=== PATIENT | male | born 1940 | race Caucasian/White ===

== ENCOUNTER → 2016-11-13 | Outpatient (CLI) | payer OTHER ==
[~2016-11-13] MED LIST: ASPI81TA28 PO; MULT-506 PO
== END | disposition home or self-care (01) ==
LOC: C.PATHSPEC 17:05
PROVIDERS: ATTEND Plastic Surgery
DX: C44.91 Basal cell carcinoma of skin, unspecified (principal)

== ENCOUNTER 2016-11-25 05:12 | Day surgery (SDC) | payer OTHER ==
[2016-11-20 14:52] VITALS: BMI 27.0
--- NOTE | 2016-11-20 15:24 | PAT Medication Instructions ---
Service Date Nov 20, 2016. Current Home Medication List Aspirin (Aspirin Ec), 81 MG PO QAM Multivitamin (Multivitamin), 1 TAB PO QAM Medication Instructions For Your Scheduled Surgery - Check with surgeon for instructions: Aspirin (Aspirin Ec), 81 MG PO QAM - Hold the following medications the morning of surgery: Multivitamin (Multivitamin), 1 TAB PO QAM Nothing to eat or drink after midnight day of surgery. If you have any questions please call us at [phone] or [phone] or [phone]
[2016-11-20 15:54] LABS: BASO % 0.1 %; BASO ABS # 0.01 K/uL (0-0.2); COMPLETE YES; EOS % 0.8 %; HEMATOCRIT 43.4 % (42-52); IG% 0.1 %; LYMPH % 39.6 %; LYMPH ABS # 3.01 K/uL (1.2-3.4); MEAN CELL VOLUME 86.8 fL (80-100); MEAN CORPUSCULAR HEMOGLOBIN 29.8 pg (25-34); MEAN CORPUSCULAR HGB CONC 34.3 g/dl (32-36); MEAN PLATELET VOLUME 11.2 fL (7.4-10.4); MONO % 9.6 %; NEUT % 49.8 %; PLATELET COUNT 196 K/uL (130-400)
[2016-11-20 16:00] LABS: BUN/CREATININE RATIO 19.8 (10-20); CALCIUM 8.9 mg/dl (8.5-10.1); POTASSIUM 4.1 mmol/L (3.5-5.1)
[~2016-11-25] VITALS: Ht 168.9 cm; Wt 79.5 kg
[2016-11-25 05:36] VITALS: BP 140/91; PULSE 82; TEMP 36.5; O2SAT 96; Ht 168.9 cm; Wt 79.5 kg
[2016-11-25] MEDS ORDERED: CEFAZOLIN 2000 MG/60 ML D5W IV SCH (06:00)
[2016-11-25] MEDS ORDERED: LACTATED RINGER'S 1000ML 1,000 ML IV SCH (06:00)
[2016-11-25] MEDS ORDERED: PROPOFOL IV EMULSION 10 MG/ML 20 ML VIAL IV ONE ×2 (06:25→07:37)
[2016-11-25] MEDS ORDERED: LIDOCAINE HCL 2% 2 ML VIAL (20MG/ML) ONE (06:25)
[2016-11-25] MEDS ORDERED: ONDANSETRON INJ 2 MG/ML 2 ML VIAL ONE ×2 (06:25→07:37)
[2016-11-25] MEDS ORDERED: FENTANYL CITRATE INJ 50 MCG/1 ML 2 ML VIAL ONE (06:25)
[2016-11-25] MEDS ORDERED: ROCURONIUM BROMIDE 10 MG/ML 5 ML VIAL ONE (06:25)
--- NOTE | 2016-11-25 06:53 | History & Physical Bridge Note ---
H&P Re-Evaluation Bridge Note: I have examined the patient, reviewed the History & Physical and in the interval since the performance of the History & Physical I have noted the following changes of clinical significance: No changes noted
[2016-11-25] MEDS ORDERED: LIDOCAINE/EPINEPHRINE 1% 20 ML VIAL ONE ×2 (07:02→08:14)
[2016-11-25] MEDS ORDERED: BACITRACIN OINT 15 GM TUBE ONE (07:02)
[2016-11-25] MEDS ORDERED: EpINEphrine HCL INJ 1 MG/ML 5ML SYRINGE ONE (07:02)
[2016-11-25] MEDS ORDERED: HYDROmorphone INJ 1 MG/ML SYR IV PRN (07:15)
[2016-11-25] MEDS ORDERED: EpHEDrine SULFATE INJ 50 MG/ML AMP IV PRN (07:15)
[2016-11-25] MEDS ORDERED: ONDANSETRON INJ 2 MG/ML 2 ML VIAL IV PRN (07:15)
[2016-11-25] MEDS ORDERED: ATROPINE SULFATE 0.1 MG/ML 5ML SYR IV PRN (07:15)
[2016-11-25] MEDS ORDERED: FENTANYL CITRATE INJ 50 MCG/1 ML 2 ML VIAL IV PRN (07:15)
[2016-11-25] MEDS ORDERED: MIDAZOLAM HCL 1 MG/ML 2ML VIAL ONE ×2 (07:21→07:53)
[2016-11-25] MEDS ORDERED: POVIDONE-IODINE OP SOLN 30 ML BTL ONE (07:21)
[2016-11-25] MEDS ORDERED: SODIUM CHLORIDE 0.9% 1000ML 1,000 ML IV SCH (09:44)
--- NOTE | 2016-11-25 09:44 | [facility] Post Operative Brief Note ---
Immediate Operative Summary Operative Date Nov 25, 2016. Pre-Operative Diagnosis Basal cell carcinoma nose, non healing lesion left hand Post-Operative Diagnosis Basal cell carcinoma nose, non healing lesion left hand Procedure(s) Performed nose-Excision of basal cell carcinoma with frozen section and full thickness skin graft, left hand- excision of basal cell carcinoma dorsum of hand with frozen section and layered closure Surgeon Dr. Mims Rubber Calender Helper Surgeon(s) none Estimated Blood Loss 0 ML Findings both lesions BCC, all margins negative Specimens Frozen Section 1. Basal cell carcinoma, nose stitch 12 o'clock specimen picked up at 0813 2. non healing skin lesion left hand specimen picked up at 0818 At 0850 lab called with results and spoke with Dr. Mims directly Anesthesia lcoal with sedation Complication(s) None Disposition Recovery Room / PACU
[2016-11-25] MEDS ORDERED: HYDROCODONE/ACETAMOPHEN 5/325MG TAB PO PRN ×2 (09:45)
[2016-11-25] MEDS ORDERED: ACETAMINOPHEN 325 MG TAB PO PRN (09:45)
[2016-11-25 09:50] VITALS: BP 114/57; PULSE 70; TEMP 36.4; O2SAT 97
--- NOTE | 2016-11-25 09:51 | Discharge Instructions ---
Discharge Instructions Date of Service Nov 25, 2016. Admission Reason for Admission: Basal Cell Carcinoma; Non-healing lesion left hand Discharge Discharge Diagnosis / Problem: Basal Cell Carcinoma Discharge Goals Goal(s): Decrease discomfort, Improve function Activity Recommendations Activity Limitations: as noted below . Instructions / Follow-Up Instructions / Follow-Up ACTIVITY RECOMMENDATIONS: __Normal activities __xNo bending, lifting or straining __No driving __xDriving allowed when you are off pain medications __Walking permitted __You should have help at home for ___ days DRESSINGS: __No dressings required _x_Keep dressings dry/in place until first office visit __Remove dressings ___ and leave dressings off __Apply ice ___ days __Remove dressings and reapply garment __Apply antibiotic ointment (Bacitracin, Neosporin, etc) to wounds 3-4 times/ day for 10 days BATHING: _x_Keep dressings dry x__Sponge bathing permitted __Showering permitted _x_No swimming, hot tubs or soaking in a tub MEDICATIONS: Resume previous medications unless instructed otherwise by your surgeon. _x_Do not use aspirin, Motrin, Advil or Ibuprofen as these may promote bleeding. Please use Tylenol. _x_Prescription(s) provided: antibiotic, pain meds prescribed in office OTHER INSTRUCTIONS: __Record drain output 2-3 times per day SPECIAL CARE INSTRUCTIONS: * It is normal to have a mild fever after surgery. If your temperature is higher than 101.5 degrees F, please call the office at [phone]. * Constipation is a typical side effect of pain medication. An over-the- counter stool softener will help relieve this. * Leaking around surgical drains may occur and should not cause concern. Sometimes these drains become clogged. If this happens, remove the bulb and milk the clot out of the tube, then replace the bulb. * Drainage from wounds after liposuction is normal and should be expected. Garments will become soiled. You should protect furniture and bedding. This drainage should mostly subside within 2-3 days. Leave garments in place unless instructed to remove them. * If you have unusual drainage from a wound or are concerned you have an infection or have any questions or concerns, please call the office at [phone]. FOLLOW UP VISIT: If not already scheduled, please call the office, , when you return home after surgery to schedule an appointment to be seen in _2__ days. Current Hospital Diet Patient's current hospital diet: Discharge Diet Recommended Diet: Regular Diet Procedures Procedures Performed: nose-Excision of basal cell carcinoma with frozen section and full thickness skin graft, left hand- excision of basal cell carcinoma dorsum of hand with frozen section and layered closure Pending Studies Studies pending at discharge: no Medical Emergencies . Who to Call and When: Medical Emergencies: If at any time you feel your situation is an emergency, please call 911 immediately. . Non-Emergent Contact Non-Emergency issues call your: Primary Care Provider, Surgeon Past History Medical & Surgical History: (1) Basal cell carcinoma . "Provider Documentation" section prepared by Mavis Mims. . VTE Core Measure Inpt VTE Proph given/why not?: Simone DAVIS Drug Monitoring Program Search Results: patient reviewed within database, no issues identified
[2016-11-25 10:20] VITALS: BP 120/79; PULSE 74; TEMP 36.3; O2SAT 96
--- NOTE | 2016-11-25 10:57 | Anesthesiology Progress Note ---
Anesthesia Post Op Note Date & Time Nov 25, 2016 at 10:57 Vital Signs Pain Intensity: 0 Vital Signs Past 12 Hours Date Time Temp Pulse Resp B/P (MAP) Pulse Ox O2 Delivery O2 Flow Rate FiO2 11/25/16 09:50 36.4 70 18 114/57 97 Room Air 11/25/16 05:36 36.5 82 18 140/91 (107) 96 Room Air Notes Mental Status: alert / awake / arousable, participated in evaluation Pt Amnestic to Procedure: Yes Nausea / Vomiting: adequately controlled Pain: adequately controlled Airway Patency, RR, SpO2: stable & adequate BP & HR: stable & adequate Hydration State: stable & adequate Anesthetic Complications: no major complications apparent
--- NOTE | 2016-11-25 12:52 | OPERATIVE REPORT ---
DATE OF OPERATION: 11/25/2016 PREOPERATIVE DIAGNOSES: Basal cell carcinoma of nasal dorsum and a nonhealing skin lesion, left hand at first dorsal webspace. PROCEDURE: Excision of basal cell carcinoma of nasal dorsum with frozen section and full thickness skin grafting and excision of lesion, left hand at first webspace with frozen section and layered closure. SURGEON: Dr. Mavis Mims. FORMS BUILDER: None. ANESTHESIA: Local with sedation. COMPLICATIONS: None. INDICATION FOR THE PROCEDURE: The patient is a 76-year-old male who was referred to my office by his primary care physician regarding a nonhealing ulceration of his nasal dorsum. Biopsy was performed, which showed basal cell carcinoma. Given the large size and location, I felt it would be best treated with excision with frozen section. During his preoperative visit, he showed me a lesion of his left hand along the dorsal aspect of the first webspace, which he stated had been nonhealing for 2 years. I offered to perform biopsy in the office, but he declined and therefore, I planned for excision at the time of excision of basal cell. BRIEF DESCRIPTION OF THE PROCEDURE: The risks, benefits and alternatives of the procedure were explained to the patient, who agreed and signed consent. He was identified and marked in the preoperative holding area. He was brought to the operating room, where he was positioned supine and placed under sedation without incident. Surgical site markings were again reassessed. The surgical site was prepped and draped sterilely. A time-out procedure was performed. I began by examining the nasal dorsum under loupe magnification and marked the apparent skin lesion with already apparent basal cell with at least 2-mm margin in all directions. 1% lidocaine with epinephrine was used to anesthetize the area. I then marked the lesion on the hand with about a 5-mm margin. This was uncertain of the etiology. It was also injected using 1% lidocaine with epinephrine. Lastly, knowing that a skin graft would be required given the large size of the nasal lesion, I marked a skin graft donor site from the left clavicular area. 1% lidocaine with epinephrine was used to anesthetize this area as well. I began with excision of the lesion of the nasal dorsum. A 15 blade scalpel was used to make the incision down to underlying subcutaneous tissue. The lesion was removed full thickness using a 15 blade scalpel. A 5-0 silk suture was used to shanon the 12 o'clock position and the lesion was sent for frozen section. Hemostasis was achieved with electrocautery. A lidocaine with epinephrine soaked Ray-Dionna was placed over the site. Similarly, the lesion of the left hand was incised using a 15 blade scalpel down to subcutaneous tissue. The lesion was removed full thickness. A suture marked at 12 o'clock and specimen was sent for frozen as well. Hemostasis was achieved with electrocautery and a Ray-Dionna soaked with lidocaine with epinephrine was placed into the wound. While awaiting the frozen section results, a full-thickness graft was harvested from the clavicular area using 15 blade scalpel to make the elliptical incision. The skin was removed with minimal underlying subcutaneous soft tissue, which was then subsequently defatted using a curved iris scissor. Hemostasis was achieved with electrocautery. The wound edges were gently undermined using electrocautery and the wound was reapproximated using 3-0 Vicryl interrupted dermal sutures and 3-0 Monocryl running subcuticular suture. Dermabond was applied. The frozen section results were called and the lesion of the nasal dorsum was basal cell carcinoma with all margins negative and the lesion of the left hand was also basal cell carcinoma with all margins negative. At this point, I began insetting the full-thickness graft into the nasal dorsum. As the majority of the subunit had already been removed, a very minimal amount of additional skin was excised and bevelled to allow better contour of the graft. The graft was inset using 5-0 silk tie over bolster sutures and 5-0 chromic interrupted skin sutures. The graft was cut to fit the recipient defect. 5-0 chromic tacking sutures were used in the mid portion of the graft as well. Xeroform and sterile cotton was used to create a tie over bolster dressing. I then began closure of the hand wound. An elliptical excision was marked to treat the standing cutaneous deformities. 3-0 Vicryl interrupted dermal sutures were placed followed by 3-0 Monocryl running subcuticular suture. Dermabond was applied. Total wound closure length was 3.5 cm. Kerlix and Tiburcio dressing was applied to the left hand. 2 x 2's and tape were placed to the nasal dressing and the graft harvest site was left open to air. The procedure was tolerated well. The patient was awakened and transferred to recovery room in satisfactory condition. I attest to the content of the Intraoperative Record and any orders documented therein. Any exception s are noted below.
--- NOTE | 2016-11-30 22:04 | EDITING REQUIRED CODING QUERY ---
CODING QUERY To promote full compliance with coding requirements relating to patient care, provider participation is requested in all cases of fisher trawl net uncertainty. Please assist us with the question(s) below: Coding Question(s): PLEASE INDICATE THE SIZE OF THE LESIONS EXCISED Physician's Response(s): NOSE__1 cm +0.2 cm margin = 1.4cm CM HAND___1 cm + 0.5 cm margin =2 cm CM Thank you Mariola Gustafson Principal Diagnosis: "_that condition established after study, to be chiefly responsible for occasioning the admission of the patient to the hospital for care." Co-Existing Principal Diagnosis: "_when two or more diagnoses equally meet the criteria for principal diagnosis as determined by the circumstances of admission, diagnostic work up, and/or therapy provided, and the Alphabetic Index, Tabular List, or another coding guideline does not provide sequencing direction, any one of the diagnoses may be sequenced first." "When the physician has documented what appears to be a current diagnosis in the body of the record, but has not included the diagnosis in the final diagnostic statement, the physician should be asked whether the diagnosis should be added." (Source [facility] 2 QTR90. p3-4)
== END 2016-11-25 10:26 | disposition home or self-care (01) ==
LOC: C.ACU 05:12
PROVIDERS: ATTEND Plastic Surgery
DX: C44.311 Basal cell carcinoma of skin of nose (principal); C44.619 Basal cell carcinoma of skin of left upper limb, including shoulder; B02.9 Zoster without complications; Z90.49 Acquired absence of other specified parts of digestive tract; Z90.89 Acquired absence of other organs; Z79.82 Long term (current) use of aspirin

== ENCOUNTER → 2017-01-15 | Outpatient (CLI) | payer OTHER ==
[~2017-01-15] MED LIST changes: -ASPI81TA28 PO
== END | disposition home or self-care (01) ==
LOC: C.PATHSPEC 12:54
PROVIDERS: ATTEND Plastic Surgery
DX: C44.91 Basal cell carcinoma of skin, unspecified (principal)